=== PATIENT | male | born 1985 | race Caucasian/White ===

== ENCOUNTER 2023-05-02 19:47 | Emergency (ER) | payer BC, OTHER, SELFPAY ==
[2023-05-02 19:49] VITALS: BP 156/106
[2023-05-02 20:07] LABS: % Basophils 0.4 % (0-2); % Eosinophils 0.9 % (0-6); % Immature Granulocytes 0.7 % (0-0.5); % Lymphocytes 36.2 % (20.5-51.1); % Neutrophils 55.8 % (42.2-75.2); Absolute Eosinophils 0.1 10^3/uL (0-0.7); Absolute Immature Granulocytes 0.1 10^3/uL (0-0.05); Absolute Lymphocytes 3.8 10^3/uL (1.2-3.4); Absolute Monocytes 0.6 10^3/uL (0.1-0.6); Absolute Neutrophils 5.8 10^3/uL (1.4-6.5); Hematocrit 42.7 % (39.0-52.0); Hemoglobin 14.8 g/dL (13.0-18.0); Mean Corp Hgb Conc. 34.7 g/dL (33.0-37.0); Mean Corpuscular Hgb 28.1 pg (27.0-31.0); Mean Corpuscular Volume 81.2 fL (80.0-94.0); Mean Platelet Volume 9.6 fL (7.4-10.4); Nucleated Red Blood Cells % 0 % (-); Platelet Count 308 10^3/uL (130-400); Red Blood Cell Count 5.26 10^6/uL (4.70-6.10); Red Cell Dist. Width 13.7 % (11.5-14.5); White Blood Cell Count 10.4 10^3/uL (4.8-10.8)
[2023-05-02 20:23] LABS: ALT (SGPT) 56 U/L (0-50); AST (SGOT) 37 U/L (17-59); Albumin 4.8 g/dl (3.5-5.0); Alkaline Phosphatase 86 U/L (38-126); Blood Urea Nitrogen 13 mg/dl (9-20); Carbon Dioxide 27 mmol/L (22-30); Chloride 100 mmol/L (98-107); Glucose 97 mg/dl (70-99); Potassium 4.3 mmol/L (3.5-5.1); Sodium 135 mmol/L (135-145); Total Bilirubin 0.6 mg/dl (0.2-1.3); Total Protein 7.7 g/dl (6.3-8.2); eGFR > 60.00
[2023-05-02 20:34] LABS: Troponin I < 0.012 ng/ml
[2023-05-02 23:42] VITALS: BP 132/98
[2023-05-02 23:59] LABS: Troponin I < 0.012 ng/ml
[2023-05-03] VITALS: BP 129/101
--- NOTE | 2023-05-03 00:39 | ED.GENMED ---
History of Present Illness
General
Chief Complaint: Chest Pain
Source: patient
Exam Limitations: none
Time Seen by Provider: 05/03/23 00:32
Travel History
Have you had any contact with someone who has COVID-19?: No
Do you have any symptoms of coronavirus? Fever > 100 degrees, chills, cough, shortness of breath, sore throat, loss of taste or smell, muscle aches, or headache?: No
History of Present Illness
History of Present Illness:
Patient is a 38-year-old man who reports intermittent sharp episodes of chest pain over the last 2 days. Patient reports that they last for few seconds at a time and then go away completely. Patient reports he has not had chest pain at this time
for hours. The pain is not associated with breathing or movement. Patient reports it occurs at rest. There is no radiation of pain down the arm or into his back. Patient denies leg pain and leg swelling. He denies a history of PE and DVT. He
denies a history of recent long travel or hospitalization. Patient reports he has had no symptoms for hours
Past History
Past History
ED Past Medical History: Hypercholesterolemia, Psychiatric and Other (migraine headaches, prediabetic)
ED Past Surgical History: Appendectomy and Orthopedic
Social History
Tobacco: Former smoker
Alcohol: None
Drug: Marijuana
Personal:
Living: with family
Employment: Employed
Family History
Family History: CAD; Negative Early CAD
Review of Systems
Review of Systems
Allergies reviewed?: Yes
All Other Systems: ROS reviewed and negative except as documented in HPI and ROS
Constitutional: Reports no symptoms
EENT: Reports no symptoms
Respiratory: Reports no symptoms
Cardiac: Reports chest pain; Denies palpitations or syncope
ABD/GI: Reports no symptoms
: Reports no symptoms
Musculoskeletal: Reports no symptoms
Skin: Reports no symptoms
Neurological: Reports no symptoms
Endocrine: Reports no symptoms
Hematologic/Lymphatic: Reports no symptoms
Psychiatric: Reports no symptoms
Phy Exam
Physical Exam
Physical Exam:
Physical Exam
General: no apparent distress, not acutely ill. Very well and comfortable appearing
Neck: supple. no meningeal signs. normal psoterior pharynx
Heart: s1/s2 regular rate and rhythm, no murmur. equal radial pulses.
Lungs: no acute respiratory distress. clear bilaterally. When patient takes a deep breath, he is not able to reproduce any chest pain
Abdomen: normal bowel sounds. not tender. no CVAT. No pulsatile mass
Neuro: alert and oriented. no focal neurological deficits
Skin: no rash
Psychiatric: well kept. interactive and cooperative
Extremities: no edema. no calf tenderness. negative homans. good distal pulses
Scores
Heart Score for Chest Pain Patients
STEMI patient?: No
History: Slightly or Non-Suspicious
ECG: Normal
Age: </= 45 years
Risk Factors: 1 or 2 Risk Factors
Troponin: </= Normal Limit
Heart Score for Chest Pain Patients: 1
Heart Score Risk: 2.5% MACE over next 6 weeks
PERC Rule Criteria
Age <50 years: Yes
HR <100 bpm: Yes
Room air oxygen sat >94%: Yes
History of DVT or PE: No
Recent trauma or surgery: No
Hemoptysis: No
Exogenous estrogen: No
Clinical signs suggestive of DVT: No
: No
Considered low risk for PE: Yes
PERC Score: 0
PE can be excluded by PERC: Yes
Course
Orders/Labs/Results
Orders:
Orders
05/02/23 19:52
Electrocardiogram (*1) Urgent
Reason for Study: Chest Pain
EKG- Treatment ONCE
CR Chest - 2 Views Urgent
Comment:
Reason For Exam: chest pain
05/02/23 20:01
Complete Blood Count/With Diff Urgent
Comprehensive Metabolic Panel Urgent
Troponin I Urgent
05/02/23 23:27
Troponin I Urgent
Abnormal Lab Results
05/02/23
20:01
Abs Immat Gran (auto) 0.1 H 10^3/uL
(0-0.05)
Absolute Lymphs (auto) 3.8 H 10^3/uL
(1.2-3.4)
Immature Gran % 0.7 H %
(0-0.5)
ALT 56 H U/L
(0-50)
05/02/23 20:01
05/02/23 20:01
Vital Signs
Initial and Last Documented VS:
Initial Vital Signs
Temp Pulse Resp BP Pulse Ox
98.3 F 75 20 156/106 99
05/02/23 19:49 05/02/23 19:49 05/02/23 19:49 05/02/23 19:49 05/02/23 19:49
Last Documented Vital Signs
Temp Pulse Resp BP Pulse Ox
98.3 F 80 23 129/101 95
05/02/23 19:49 05/03/23 00:45 05/03/23 00:45 05/03/23 00:00 05/03/23 00:45
MDM/Problems Addressed
Differential Diagnosis Includes:
Musculoskeletal chest pain, pleuritis, costochondritis, PE, acute coronary syndrome
MDM/Problems Addressed:
Patient presents with acute chest pain
Chronic conditions affecting care:
Hyperlipidemia
Acute Exacerbation and/or Progression of Chronic Illness:
Patient is acutely hypertensive, likely due to being in the emergency department and anxiety
Acute Exacerbation and/or Progression of Chronic Illness: HTN
*Radiology
Radiology exam reviewed: preliminary read by ED provider (Chest x-ray reviewed by me. No acute disease) and radiology read reviewed
*Pulse Oximetry
Patient hypoxic: no
*EKG
Interpreted by ED Provider?: Yes
Interpretation: normal
Comparison EKG: no comparison EKG present
Rate: normal
Rhythm: sinus
[place]: normal axis
Interval: normal interval
QRS Pattern: normal QRS
Ischemia: no ischemia
*Dog Sitter Interpretation
Rate: normal
Rhythm: sinus
*Critical Care Note
Total Time (30-74mins, 75-104mins- exclusive of procedures): Not Applicable
Data Reviewed
Source: patient
Patient Management
Social determinants of health affecting care: Living situation and Strong social support
Escalation/DeEscalation of care consider admission/obs:
Given patient has a nonischemic EKG and has been chest pain-free for hours, it is doubtful he has acute coronary syndrome. It is doubtful he has a PE or aortic dissection if he has been well and comfortable for hours.
ED Attending Note
-
Portions of this chart may have been created with voice recognition software.� Occasional wrong word or��sound alike� substitutions may have occurred due to the inherent limitations of voice recognition software.
Discharge Plan
Departure
Patient Disposition: Home (Routine Discharge)
Date of Disposition: 05/03/23
Time of Disposition: 00:54
Patient with high blood pressure during this ER visit?: Yes
Condition: Good
Covid-19: Not Applicable
Discharge Problem:
Chest pain in adult
Instructions: Chest Pain PCP Follow Up, BLOOD PRESSURE
Prescriptions:
No Action
cetirizine 10 MG tablet
10 mg PO BID
zolmitriptan 5 MG tablet,disintegrating
5 mg PO PRN PRN (Reason: Migraines)
simvastatin 20 MG tablet
20 mg PO QPM
metformin 500 MG tablet extended release 24 hr
1,000 mg PO QPM
cefuroxime axetil 500 MG tablet
500 mg PO BID 7 Days Qty: 14 0RF
hydrocodone-acetaminophen 1 TABLET tablet
1 - 2 tab PO Q4HPRN PRN (Reason: Mod-severe pain) 7 Days Qty: 30 0RF
ondansetron 4 MG tablet,disintegrating
4 mg PO TIDPRN PRN (Reason: nausea/vomiting) Qty: 10 0RF
hydrocodone-acetaminophen 1 TABLET tablet
1 tab PO Q4HPRN PRN (Reason: severe pain) Qty: 6 0RF
albuterol sulfate 2.5 mg/0.5 mL solution for nebulization
2.5 mg inhalation Q6H PRN (Reason: shortness of breath or wheezing) Qty: 30 0RF
methylprednisolone [Medrol (Yeison)] 4 mg tablets,dose pack
See Rx Instructions .ROUTE .COMPLEX Qty: 21 0RF
Rx Instructions:
orally per package directions
Referrals:
Piyush Martínez MD [Family Provider] -
Interventions
Interventions:
*Risk Screen - Suicide Last Done: 05/02/23 19:49
*General Assessment Last Done: 05/02/23 19:49
*Neglect/Abuse Screening Last Done: 05/02/23 19:49
ED- Fall Risk Assessment Last Done: 05/03/23 00:14
*ED COVID-19 Vaccine History Last Done: 05/03/23 01:14
*Nursing Disposition Last Done: 05/03/23 01:14
ED- Cardiac Assessment Last Done: 05/03/23 00:14
Discharge Date and Time
Discharge Date/Time: 05/03/23 01:15
== END 2023-05-03 01:15 | disposition home or self-care (01) ==
LOC: EMR 19:47
PROVIDERS: Emergency Medicine; EMERGENCY PHYSICIAN Emergency Medicine; FAMILY PHYSICIAN Family Medicine
DX: R07.89 Other chest pain (principal); Z87.891 Personal history of nicotine dependence; R03.0 Elevated blood-pressure reading, without diagnosis of hypertension
CPT/HCPCS: 99285; 71046; 80053; 84484; 85025; 93005

== ENCOUNTER 2023-10-01 19:48 | Emergency (ER) | payer BC, OTHER, SELFPAY ==
[2023-10-01 19:55] VITALS: BP 146/88
--- NOTE | 2023-10-01 21:03 | EDRN ---
can move toes. strong pulse.
--- NOTE | 2023-10-01 21:20 | ED.GENMED ---
History of Present Illness
General
Chief Complaint: Musculo-Skeletal Complaint
Source: patient
Time Seen by Provider: 10/01/23 21:14
History of Present Illness
History of Present Illness:
38-year-old male presenting emergency department for evaluation of right ankle injury sustained while at his [employer] class earlier this evening stating that he was grappling with another individual and twisted his right ankle and now with pain over
the anterior/lateral aspect of the right ankle with difficulty ambulating. Patient notes previous ORIF to the same ankle. No other injuries were sustained.
Past History
Past History
ED Past Medical History: Hypercholesterolemia, NIDDM, Psychiatric and Other (migraine headaches, prediabetic)
ED Past Surgical History: Appendectomy, Orthopedic, Tonsilectomy and Other
Social History
Tobacco: Former smoker
Alcohol: None
Drug: Marijuana
Personal:
Living: with family
Employment: Employed
Family History
Family History: CAD; Negative Early CAD
Review of Systems
Review of Systems
All Other Systems: ROS reviewed and negative except as documented in HPI and ROS
Phy Exam
Physical Exam
Physical Exam:
GENERAL: Alert , in no apparent distress
EYE: conjunctiva clear
Head: Normocephalic atraumatic
NECK: Supple,
ENT: mmm.
LUNGS: no acute respiratory distress
NEUROLOGICAL: Alert and oriented
SKIN: Warm and dry, skin intact.
MUSCULOSKELETAL: Right lower extremity: Mild soft tissue swelling over the anterior ankle with tenderness over this area. No focal medial or lateral malleolus tenderness. Calcaneal tendon is without laxity. Easily palpable pedal and tibial pulse.
No proximal tib-fib tenderness. No tenderness at the base of the fifth metatarsal.
PSYCH: Normal and appropriate interaction.
Scores
Heart Failure Risk
Heart Failure Risk Score: Not Applicable
Heart Score for Chest Pain Patients
STEMI patient?: Not applicable
Withdrawal Assessment of Alcohol
Withdrawal Assessment Completed?: Not applicable
Course
Orders/Labs/Results
Orders:
Orders
10/01/23 19:59
Ankle, Right 3 view CR [CR Ankle - Right Min 3 Views *] Urgent
Comment:
Reason For Exam: ankle injury, pain and swelling.
10/01/23 21:20
Crutches-Treatment ONCE
Ortho Boot Right- Treatment ONCE
Short or tall?: Tall
Vital Signs
Initial and Last Documented VS:
Initial Vital Signs
Temp Pulse Resp BP Pulse Ox
98.4 F 90 18 146/88 100
10/01/23 19:55 10/01/23 19:55 10/01/23 19:55 10/01/23 19:55 10/01/23 19:55
Last Documented Vital Signs
Temp Pulse Resp BP Pulse Ox
98.4 F 68 16 135/86 97
10/01/23 19:55 10/01/23 21:55 10/01/23 21:55 10/01/23 21:55 10/01/23 21:55
MDM/Problems Addressed
Differential Diagnosis Includes:
Sprain, fracture, contusion
MDM/Problems Addressed:
38-year-old male presenting emergency department for evaluation of right ankle injury sustained earlier this evening. Difficulty ambulating. Tenderness anteriorly. X-ray ordered from triage does not show any acute fracture. Will place in an
orthopedic boot and crutches for comfort. NSAIDs, rest, ice and elevation advised. Information for orthopedics provided. Stable for discharge home.
*Radiology
Radiology exam reviewed: preliminary read by ED provider (No acute fracture)
*Pulse Oximetry
Patient hypoxic: no
*Critical Care Note
Total Time (30-74mins, 75-104mins- exclusive of procedures): Not Applicable
ED Attending Note
-
Portions of this chart may have been created with voice recognition software.� Occasional wrong word or��sound alike� substitutions may have occurred due to the inherent limitations of voice recognition software.
Discharge Plan
Departure
Patient Disposition: Home (Routine Discharge)
Date of Disposition: 10/01/23
Time of Disposition: 21:20
Patient with high blood pressure during this ER visit?: Yes
Discharge Problem:
Right ankle sprain
Instructions: Sprain (DC)
Prescriptions:
No Action
cetirizine 10 MG tablet
10 mg PO BID
zolmitriptan 5 MG tablet,disintegrating
5 mg PO PRN PRN (Reason: Migraines)
simvastatin 20 MG tablet
20 mg PO QPM
metformin 500 MG tablet extended release 24 hr
1,000 mg PO QPM
cefuroxime axetil 500 MG tablet
500 mg PO BID 7 Days Qty: 14 0RF
hydrocodone-acetaminophen 1 TABLET tablet
1 - 2 tab PO Q4HPRN PRN (Reason: Mod-severe pain) 7 Days Qty: 30 0RF
ondansetron 4 MG tablet,disintegrating
4 mg PO TIDPRN PRN (Reason: nausea/vomiting) Qty: 10 0RF
hydrocodone-acetaminophen 1 TABLET tablet
1 tab PO Q4HPRN PRN (Reason: severe pain) Qty: 6 0RF
albuterol sulfate 2.5 mg/0.5 mL solution for nebulization
2.5 mg inhalation Q6H PRN (Reason: shortness of breath or wheezing) Qty: 30 0RF
methylprednisolone [Medrol (Yeison)] 4 mg tablets,dose pack
See Rx Instructions .ROUTE .COMPLEX Qty: 21 0RF
Rx Instructions:
orally per package directions
Referrals:
Piyush Martínez MD [Family Provider] -
Zoran Lew MD [Active] - (Ortho - Call for appointment)
Interventions
Interventions:
*Risk Screen - Suicide Last Done: 10/01/23 21:00
*General Assessment Last Done: 10/01/23 21:00
*Neglect/Abuse Screening Last Done: 10/01/23 21:00
ED- Fall Risk Assessment Last Done: 10/01/23 21:00
*ED COVID-19 Vaccine History Last Done: 10/01/23 21:00
*Nursing Disposition Last Done: 10/01/23 21:55
ED-Musculoskeletal Assessment Last Done: 10/01/23 21:00
Discharge Date and Time
Discharge Date/Time: 10/01/23 21:55
Print Language: MALIAN
[2023-10-01 21:55] VITALS: BP 135/86
== END 2023-10-01 21:55 | disposition home or self-care (01) ==
LOC: EMR 19:48
PROVIDERS: EMERGENCY PHYSICIAN Emergency Medicine; FAMILY PHYSICIAN Family Medicine
DX: S93.401A Sprain of unspecified ligament of right ankle, initial encounter (principal); X50.1XXA Overexertion from prolonged static or awkward postures, initial encounter; E78.00 Pure hypercholesterolemia, unspecified; E11.9 Type 2 diabetes mellitus without complications; Z87.891 Personal history of nicotine dependence; Z82.49 Family history of ischemic heart disease and other diseases of the circulatory system; Z90.49 Acquired absence of other specified parts of digestive tract
CPT/HCPCS: 99283; 73610